=== PATIENT | male | born 1940 | race Caucasian/White ===

== ENCOUNTER 2023-08-28 17:12 | Emergency (ER) | payer MEDICARE, BC ==
[~2023-08-28] VITALS: Ht 167.6 cm; Wt 73.0 kg
[~2023-08-28 17:12] MED LIST: AMOX-430 PO
[2023-08-28 17:14] VITALS: TEMP 98
[2023-08-28 17:34] LABS: BASOPHILS % (AUTO) 0.6 % (0.0-2.0); EOSINOPHILS % (AUTO) 0.2 % (0.0-6.0); HEMATOCRIT 29 % (39-51); HEMOGLOBIN 9.6 g/dL (13.5-17.5); LYMPHOCYTES % (AUTO) 22.8 % (20.0-44.0); MEAN CORPUSCULAR HEMOGLOBIN 33 PG (26.0-33.0); MEAN CORPUSCULAR HGB CONC 34 g/dl (31.0-36.0); MEAN CORPUSCULAR VOLUME 98 fL (80-96); MONOCYTES # (AUTO) 0.4 K/uL (0.1-1.30); MONOCYTES % (AUTO) 8.2 % (2.0-12.0); NEUTROPHILS % (AUTO) 68.2 % (43.0-81.0); PLATELET COUNT (AUTO) 211 K/uL (150-450); RED BLOOD CELL COUNT(AUTO) 2.93 MIL/uL (4.5-6.0); RED CELL DISTRIBUTION WIDTH 15.3 % (11.5-15.0); WHITE BLOOD COUNT (AUTO) 4.4 K/uL (4.3-11.0)
[2023-08-28 17:48] LABS: ALANINE AMINOTRANSFERASE 22 U/L (12-78); ALCOHOL, BLOOD < 3 mg/dL (0-10); ALKALINE PHOSPHATASE 101 U/L (46-116); ASPARTATE AMINOTRANSFERASE 18 U/L (15-37); BILIRUBIN,DIRECT 0.1 mg/dL (0.0-0.2); BILIRUBIN,TOTAL 0.3 mg/dL (0.2-1.0); CALCIUM, SERUM 9.3 mg/dL (8.5-10.1); CARBON DIOXIDE 31 mmol/L (21-32); CHLORIDE 102 mmol/L (98-107); CREATININE 0.9 mg/dL (0.6-1.3); GLUCOSE 100 mg/dL (74-106); POTASSIUM 3.7 mmol/L (3.5-5.1); SODIUM SERUM 137 mmol/L (136-145); TOTAL PROTEIN, SERUM 6.9 g/dL (6.4-8.2); UREA NITROGEN, BLOOD 18 mg/dL (7-18)
[2023-08-28 17:53] LABS: SALICYLATE 0.8 mg/dL (2.8-20.0)
[2023-08-28 17:54] LABS: ACETAMINOPHEN <10 ug/ml (10-30)
[2023-08-28 18:18] LABS: AMPHETAMINE, URINE NEGATIVE (NEGATIVE); BARBITURATE, URINE NEGATIVE (NEGATIVE); BENZODIAZEPINE, URINE NEGATIVE (NEGATIVE); CANNABINOID, URINE NEGATIVE (NEGATIVE); COCCAINE, URINE NEGATIVE (NEGATIVE); PHENCYCLIDINE SCREEN,URINE NEGATIVE (NEGATIVE)
[2023-08-28 18:19] LABS: OPIATE, URINE POSITIVE (NEGATIVE)
[2023-08-28 19:05] LABS: APPEARANCE,URINE CLEAR (CLEAR); BILIRUBIN,URINE NEGATIVE (NEGATIVE); BLOOD, URINE NEGATIVE Ery/uL (NEGATIVE); COLOR,URINE YELLOW (YELLOW); KETONES,URINE NEGATIVE (NEGATIVE); LEUKOCYTE ESTERASE ,URINE NEGATIVE (NEGATIVE); NITRITE, URINE NEGATIVE (NEGATIVE); PROTEIN,URINE NEGATIVE (NEGATIVE); UGLUCOSE NEGATIVE (NEGATIVE); UROBILINOGEN,URINE 0.2 EU/dL (0.2)
[2023-08-28 19:12] VITALS: O2SAT 98
[2023-08-28] MEDS ORDERED: OLANZAPINE 5 MG TABLET ONE (22:26)
[2023-08-28] MEDS ORDERED: clonazePAM 1 MG TABLET ONE (22:26)
[2023-08-28] MEDS: OLANZAPINE ZYDIS 5 MG TAB.RAPDIS PO ONE (22:27)
[2023-08-28] MEDS: clonazePAM 1 MG TABLET PO ONE (22:27)
[2023-08-28] MEDS ORDERED: AMLO-212 PO (23:02)
[2023-08-28] MEDS ORDERED: AMLODIPINE BESYLATE 5 MG TABLET ONE (23:03)
[2023-08-28 23:30] VITALS: BP 152/105
[2023-08-28] MEDS: AMLODIPINE BESYLATE 5 MG TABLET PO ONE (23:30)
== END 2023-08-29 00:11 ==
LOC: ER 17:19
DX: R45.851 Suicidal ideations (principal); R45.1 Restlessness and agitation; Z20.822 Contact with and (suspected) exposure to COVID-19
CPT/HCPCS: 36415; 80048-TC; 80076-TC; 85025-TC; G0480

== ENCOUNTER 2023-11-07 14:30 | Emergency (ER) | payer MEDICARE, BC ==
[~2023-11-07] VITALS: Ht 167.6 cm; Wt 71.7 kg
[~2023-11-07 14:30] MED LIST changes: +AMLO-212 PO
[2023-11-07 15:01] VITALS: BP 131/82; TEMP 97.9; O2SAT 99
== END 2023-11-07 16:36 | disposition left against medical advice (07) ==
LOC: ER 15:04
DX: M79.671 Pain in right foot (principal)

== ENCOUNTER 2024-08-07 15:54 | Emergency (ER) | payer MEDICARE, BC ==
[~2024-08-07] VITALS: Ht 170.2 cm; Wt 72.6 kg
[2024-08-07 16:52] LABS: BASOPHILS % (AUTO) 0.3 % (0.0-2.0); HEMATOCRIT 25 % (39-51); HEMOGLOBIN 8.5 g/dL (13.5-17.5); LYMPHOCYTES # (AUTO) 0.4 K/uL (0.8-4.8); LYMPHOCYTES % (AUTO) 15.4 % (20.0-44.0); MEAN CORPUSCULAR HEMOGLOBIN 35 PG (26.0-33.0); MEAN CORPUSCULAR HGB CONC 35 g/dl (31.0-36.0); MEAN CORPUSCULAR VOLUME 101 fL (80-96); MONOCYTES # (AUTO) 0.5 K/uL (0.1-1.30); MONOCYTES % (AUTO) 18.8 % (2.0-12.0); NEUTROPHILS # (AUTO) 1.8 K/uL (1.8-8.9); NEUTROPHILS % (AUTO) 65.5 % (43.0-81.0); PLATELET COUNT (AUTO) 179 K/uL (150-450); RED BLOOD CELL COUNT(AUTO) 2.46 MIL/uL (4.5-6.0); RED CELL DISTRIBUTION WIDTH 15.8 % (11.5-15.0); WHITE BLOOD COUNT (AUTO) 2.7 K/uL (4.3-11.0)
[2024-08-07 17:04] LABS: CALCIUM, SERUM 9.3 mg/dL (8.5-10.1); CREATININE 1.1 mg/dL (0.6-1.3); POTASSIUM 4.1 mmol/L (3.5-5.1)
[2024-08-07 17:08] LABS: INR 1.06 (0.91-1.10); PARTIAL THROMBOPLASTIN TIME 30.5 SEC (24.3-34.3); PROTHROMBIN TIME 11.2 SECS (9.2-11.1)
[2024-08-07 17:15] VITALS: BP 150/76; TEMP 99.3; O2SAT 99
[2024-08-07 17:17] LABS: ALBUMIN 3.8 g/dL (3.4-5.0); BILIRUBIN,DIRECT 0.1 mg/dL (0.0-0.2); BILIRUBIN,TOTAL 0.3 mg/dL (0.2-1.0); LACTIC ACID 1.3 mmol/L (0.4-2.0); TOTAL PROTEIN, SERUM 6.5 g/dL (6.4-8.2)
[2024-08-07 17:21] LABS: APPEARANCE,URINE CLEAR (CLEAR); BILIRUBIN,URINE NEGATIVE (NEGATIVE); BLOOD, URINE NEGATIVE Ery/uL (NEGATIVE); COLOR,URINE YELLOW (YELLOW); KETONES,URINE NEGATIVE (NEGATIVE); LEUKOCYTE ESTERASE ,URINE NEGATIVE (NEGATIVE); NITRITE, URINE NEGATIVE (NEGATIVE); PROTEIN,URINE NEGATIVE (NEGATIVE); UGLUCOSE NEGATIVE (NEGATIVE); UROBILINOGEN,URINE 0.2 EU/dL (0.2)
[2024-08-07] MEDS ORDERED: IV NS 0.9% 1,000 ML BAG IV ONE (17:30)
[2024-08-07 18:07] LABS: LYMPHOCYTES % (MANUAL) 18 % (16-48); MONOCYTES % (MANUAL) 11 % (0-11.0); NEUTROPHILS % (MANUAL) 71 (42-76); PLATELET ESTIMATE ADEQUATE
[2024-08-07 18:08] LABS: ANISOCYTOSIS 1+
== END 2024-08-07 17:51 | disposition left against medical advice (07) ==
LOC: ER 15:56
DX: E86.0 Dehydration (principal); R62.7 Adult failure to thrive; G89.29 Other chronic pain; I10 Essential (primary) hypertension; D53.9 Nutritional anemia, unspecified; Z79.899 Other long term (current) drug therapy; Z20.822 Contact with and (suspected) exposure to COVID-19; Z86.2 Personal history of diseases of the blood and blood-forming organs and certain disorders involving the immune mechanism; I11.9 Hypertensive heart disease without heart failure
CPT/HCPCS: 36415; 71045-TC; 80048-TC; 80076-TC; 83605-TC; 85025-TC; 85730-TC; 87040-TC; 87086-TC